=== PATIENT | male | born 1950 | race Caucasian/White ===

== ENCOUNTER 2020-10-04 21:20 | Emergency (ER) | payer MEDICARE, OTHER ==
[~2020-10-04] VITALS: Ht 177.8 cm; Wt 73.0 kg
[2020-10-04 21:21] VITALS: BP 74/70
[2020-10-05] MEDS ORDERED: OMEP20TA2 MT (16:25)
== END 2020-10-04 23:00 | disposition left against medical advice (07) ==
LOC: ER 21:20
DX: Z53.21 Procedure and treatment not carried out due to patient leaving prior to being seen by health care provider (principal)
CPT/HCPCS: 93005

== ENCOUNTER 2020-10-05 22:34 | Inpatient (IN) | payer MEDICARE, OTHER ==
[~2020-10-05] VITALS: Ht 167.6 cm; Wt 75.0 kg
[~2020-10-05 22:34] MED LIST: OMEP20TA2 MT
[2020-10-05] MEDS ORDERED: LABETALOL HCL 20MG/4ML CARPUJECT IV ONE (23:15)
[2020-10-05] MEDS ORDERED: LABETALOL 5MG/ML SYR 20 MG/4 ML SYRINGE IV NR (23:45)
[2020-10-06 00:47] LABS: HEMATOCRIT. 32.7 % (42.0-52.0); MEAN CORPUSCULAR HEMOGLOBIN 32.2 pg (28.0-32.0); MEAN PLATELET VOLUME 6.8 fl (7.4-10.4); PLATELET 297 x1000/uL (130-400); RED BLOOD CELL COUNT 3.41 mill/uL (4.7-6.1)
[2020-10-06 00:48] LABS: CHLORIDE 107 mEq/L (98-107)
[2020-10-06 02:54] LABS: PLATELET ESTIMATE NORMAL
[2020-10-06] MEDS ORDERED: IOHEXOL-350 100 ML BOTTLE ONE (03:33)
[2020-10-06] MEDS ORDERED: AMLODIPINE 10MG TABLET PO SCH (09:30)
[2020-10-06] MEDS ORDERED: ONDANSETRON HCL 4MG/2ML INJ IV PRN (09:30)
[2020-10-06] MEDS ORDERED: FAMOTIDINE 20MG TABLET PO NR (09:30)
[2020-10-06] MEDS ORDERED: DIPHENHYDRAMINE 50MG CAPSULE PO PRN (10:30)
[2020-10-06] MEDS ORDERED: MAGNESIUM/ALUMINUM HYDROXIDE/SIMETHICONE 30ML UDC PO PRN (10:30)
[2020-10-06 10:33] LABS: *AMPHETAMINES SCREEN URINE NEGATIVE (NEGATIVE); *BARBITURATES SCREEN URINE PRESUMTIVE POSITIVE (NEGATIVE); *BENZODIAZEPINES SCREEN URINE NEGATIVE (NEGATIVE); *COCAINE SCREEN URINE NEGATIVE (NEGATIVE); METHADONE URINE SCREEN NEGATIVE (NEGATIVE); OPIATES URINE SCREEN NEGATIVE (NEGATIVE)
[2020-10-06 10:34] LABS: CANNABINOID URINE SCREEN NEGATIVE (NEGATIVE); PHENCYCLIDINE URINE SCREEN NEGATIVE (NEGATIVE)
[2020-10-06] MEDS: ACETAMINOPHEN 325MG TABLET PO PRN ×2 (10:51→17:45)
[2020-10-06] MEDS: HYDRALAZINE HCL 25MG TABLET PO SCH ×3 (13:26→23:00)
[2020-10-06 16:00] VITALS: BP 129/79
[2020-10-06 20:00] VITALS: BP 128/71
[2020-10-07] VITALS: BP 135/89
[2020-10-07 04:00] VITALS: BP 140/86
[2020-10-07] MEDS: HYDRALAZINE HCL 25MG TABLET PO SCH (05:49)
[2020-10-07] MEDS ORDERED: OMEPRAZOLE 20MG CAPSULE EXTENDED RELEASE PO SCH (06:30)
[2020-10-07] MEDS ORDERED: FAMOTIDINE 20MG TABLET PO SCH (09:00)
== END 2020-10-07 07:30 | disposition left against medical advice (07) | DRG 304 ==
LOC: ER 23:39 → MICUSO 10-06 03:44 → EDBEDREQ 10-06 04:16 → EDBEDREQTM 10-06 04:16 → ENRESERV 10-06 09:02 → 6WST 10-06 13:55
PROVIDERS: ADMIT Internal Medicine; ATTEND Internal Medicine
DX: I16.1 Hypertensive emergency (principal); I50.33 Acute on chronic diastolic (congestive) heart failure; E44.1 Mild protein-calorie malnutrition; E87.2 Acidosis; I11.0 Hypertensive heart disease with heart failure; K21.9 Gastro-esophageal reflux disease without esophagitis; D64.9 Anemia, unspecified; Z53.29 Procedure and treatment not carried out because of patient's decision for other reasons; R74.01 Elevation of levels of liver transaminase levels; Z20.822 Contact with and (suspected) exposure to COVID-19; Z82.49 Family history of ischemic heart disease and other diseases of the circulatory system; Z86.79 Personal history of other diseases of the circulatory system; Z59.0 Homelessness; Z91.19 Patient's noncompliance with other medical treatment and regimen; Z95.2 Presence of prosthetic heart valve; Z68.26 Body mass index [BMI] 26.0-26.9, adult; Z79.1 Long term (current) use of non-steroidal anti-inflammatories (NSAID)
CPT/HCPCS: 36415; 71045; 71275; 80053; 80305; 83605; 83880; 84443; 84484; 85025; 85379; 87426; 93005; 99285; J3490; Q0163; Q9967